=== PATIENT | female | born 1995 | race Two or more races ===

== ENCOUNTER → 2019-03-12 | Outpatient (CLI) | payer OTHER ==
[~2019-03-12] MED LIST: NORE-76 PO
[2019-03-13 10:13] LABS: FOLLICLE STIMULATING HORMONE 5.6 mIU/mL (.)
== END | disposition home or self-care (01) ==
LOC: LAB 11:31
PROVIDERS: ATTEND Obstetrics & Gynecology
DX: E28.2 Polycystic ovarian syndrome (principal)
CPT/HCPCS: 36415; 83001; 83036; 83498; 84146; 84403